=== PATIENT | male | born 2000 | race Two or more races ===

== ENCOUNTER 2019-12-30 10:06 | Emergency (ER) | payer OTHER ==
--- NOTE | 2019-12-30 10:19 | PDOC ---
History of Present Illness - General Chief Complaint: Asthma Stated Complaint: SOB Time Seen by Provider: 12/30/19 10:18 History Source: Patient Exam Limitations: No Limitations - History of Present Illness Initial Comments: 12/30/19 10:19 Amando Howell is a 19M with PMH asthma presenting with SOB and wheezing. Patient has history of severe childhood asthma with many hospitalizations and one intubation, as an adult has infrequent hospitalizations, on Symbicort QD and albuterol inhaler PRN, last asthma exacerbation 3 weeks ago. Allergies to pollen and cats. Patient reports he has had SOB and wheezing for the last day, was sitting on a bus back to [place] from [place] on a 29 hour trip and was wheezing the entire time. Does not have albuterol inhaler, tried taking Symbicort inhaler multiple times without significant relief. Denies any fever/chills/nausea/vomiting/chest pain/SOB. Past History - Past Medical History Allergies/Adverse Reactions: Allergies Allergy/AdvReac Type Severity Reaction Status Date / Time No Known Allergies Allergy Verified 12/30/19 10:39 Home Medications: Ambulatory Orders Albuterol 0.083% Nebulizer Latasha [Ventolin 0.083% Nebulizer Soln -] 1 neb NEB Q4H PRN #30 vial 12/30/19 Albuterol Sulfate Inhaler - [Ventolin Hfa Inhaler -] 1 - 2 inh PO Q4H #1 inhaler 12/30/19 Budesonide/Formeterol Fumarate [SYMBICORT 80/4.5mcg -] 1 inh PO DAILY #1 cannister 12/30/19 Nebulizer [Lc D Nebulizer Set] 1 each ONCE #1 each 12/30/19 predniSONE [Deltasone -] 40 mg PO DAILY 5 Days #10 tablet 12/30/19 Review of Systems - Review of Systems Able to Perform ROS?: Yes Constitutional: No: Chills, Fever HEENTM: No: Symptoms Reported Respiratory: Yes: Shortness of Breath, SOB at Rest, Wheezing. No: Cough, Productive cough Cardiac (ROS): No: Chest Pain, Edema, Irregular Heart Rate, Lightheadedness, Palpitations, Syncope, Chest Tightness ABD/GI: No: Blood Streaked Bowels, Constipated, Diarrhea, Nausea, Poor Appetite, Poor Fluid Intake, Vomiting : No: Symptoms Reported Musculoskeletal: No: Symptoms Reported Integumentary: No: Symptoms Reported Neurological: No: Headache, Numbness, Paresthesia Endocrine: No: Symptoms Reported Hematologic/Lymphatic: No: Symptoms Reported All Other Systems: Reviewed and Negative *Physical Exam - Physical Exam General Appearance: Yes: Nourished, Appropriately Dressed, Mild Distress HEENT: positive: EOMI, MALLORY, Normal Voice, Symmetrical, Pharynx Normal. negative: Scleral Icterus (R), Scleral Icterus (L), Pharyngeal Erythema, Tonsillar Exudate, Tonsillar Erythema, Hearing Grossly Normal Neck: positive: Normal Thyroid, Supple. negative: Tender, Trachea midline, Rigid, Lymphadenopathy (R), Lymphadenopathy (L) Respiratory/Chest: positive: Labored Respiration, Decreased Breath Sounds, Wheezing. negative: Chest Tender, Lungs Clear, Normal Breath Sounds, Respiratory Distress, Accessory Muscle Use, Crackles, Rhonchi, Stridor, Hyperresonant Cardiovascular: positive: Regular Rhythm, Regular Rate. negative: Murmur Gastrointestinal/Abdominal: positive: Normal Bowel Sounds, Flat, Soft. negative: Tender, Organomegaly, Pulsatile Mass, Guarding, Tenderness, Hernia, Mass Musculoskeletal: positive: Normal Inspection. negative: CVA Tenderness, Decreased Range of Motion, Vertebral Tenderness Extremity: positive: Normal Capillary Refill, Normal Inspection, Normal Range of Motion, Pelvis Stable. negative: Tender, Pedal Edema, Swelling, Calf Tenderness Integumentary: positive: Normal Color, Dry, Warm Neurologic: positive: Fully Oriented, Alert, Normal Mood/Affect, Normal Response Medical Decision Making - Medical Decision Making 12/30/19 11:22 Presents with SOB and wheezing for the last day in the setting of only having Symbicort inhaler and no albuterol, has history of childhood asthma and intubation as a child but not severe asthma as an adult, last ER visit for asthma 3 weeks ago. VS stable in ED but has inspiratory and expiratory wheezing on exam consistent with asthma exacerbation. Giving Duonebs and 60mg prednisone for asthma relief. Sending home with 5 days 40mg prednisone dose, refill of Symbicort and albuterol, and a nebulizer with some amps for further asthma management. 12/30/19 12:33 Patient re-evalauted and doing much better, stable for discharge home with meds as prescribed. Discharge - Discharge Information Problems reviewed: Yes Clinical Impression/Diagnosis: Asthma exacerbation Qualifiers: Asthma severity: moderate Asthma persistence: unspecified Qualified Code(s): J45.901 - Unspecified asthma with (acute) exacerbation Condition: Stable Disposition: HOME - Admission No - Additional Discharge Information Prescriptions: predniSONE [Deltasone -] 40 mg PO DAILY 5 Days #10 tablet Nebulizer [Lc D Nebulizer Set] 1 each MC ONCE #1 each Budesonide/Formeterol Fumarate [SYMBICORT 80/4.5mcg -] 1 inh PO DAILY #1 cannister Albuterol 0.083% Nebulizer Latasha [Ventolin 0.083% Nebulizer Soln -] 1 neb NEB Q4H PRN #30 vial PRN Reason: Asthma Albuterol Sulfate Inhaler - [Ventolin Hfa Inhaler -] 1 - 2 inh PO Q4H #1 inhaler - Follow up/Referral - Patient Discharge Instructions Patient Printed Discharge Instructions: DI for Asthma -- Adult Additional Instructions: Today you were evaluated for shortness of breath. We have given you breathing treatments and steroids for your asthma and you felt better. At home, please take your Symbicort and albuterol as prescribed. Taking the Symbicort each day is important, but if you have wheezing you need to take the albuterol inhaler because this will act faster. A prescription for more steroids to take at home has been given. Please see your primary doctor in the next 3 days for further care. If you experience worsening shortness of breath, chest tightness, become unable to speak or breathe well, or have any other new or concerning symptoms, please return to the emergency room. - Post Discharge Activity
[2019-12-30] MEDS ORDERED: methylPREDNISolone NA SUCC 125 MG/2 ML VIAL IVPUSH ONE (10:35)
[2019-12-30] MEDS ORDERED: predniSONE 20 MG TABLET (UD) PO ONE ×2 (10:41→10:47)
[2019-12-30] MEDS ORDERED: predniSONE 20 MG TABLET (UD) ONE (10:52)
[2019-12-30] MEDS ORDERED: ALBUTEROL SO4 2.5/IPRATROPIUM 0.5 INH SOL 3 ML VIAL.NEB. NEB ONE (10:52)
[2019-12-30 11:00] VITALS: BP 120/73; PULSE 65; TEMP 97.4; BMI 27.8
--- NOTE | 2019-12-30 11:11 | PDOC ---
Attending Attestation - Resident Resident Name: Kian Francis - ED Attending Attestation I have performed the following: I have examined & evaluated the patient, The case was reviewed & discussed with the resident, I agree w/resident's findings & plan - HPI HPI: 12/30/19 11:05 19y/o M with h/o mild persistent asthma on inhaled steroid daily presents now with 2d asthma exacerbation and usual sxs of wheezing, dry cough, chest congestion. Sxs prompted by accidentally inhaling his cologne, denies smoking/drugs. no f/c. has not been admitted for asthma in years, but has about 4 ED visits annually. - Physicial Exam PE: 12/30/19 11:06 afebrile, 98% on room air alert seated comfortably in stretcher, nad speaking full sentences s1s2, rrr good air entry b/l, no accessory muscle use. scant insp and exp wheeze b/l lower and mid lung panda, no focally decreased breath sounds. no edema/calf ttp - Medical Decision Making 12/30/19 11:11 19-year-old male with history of mild persistent asthma presents with asthma exacerbation over the last 1 to 2 days without evidence of superimposed infectious process, no acute hypoxic respiratory distress, but with some increased work of breathing. Nebulizers Steroids No indication for imaging Reassess and disposition accordingly
[2019-12-30] MEDS: ALBUTEROL SO4 2.5/IPRATROPIUM 0.5 INH SOL 3 ML VIAL.NEB. NEB SCH ×2 (11:20→11:30)
== END 2019-12-30 13:06 | disposition home or self-care (01) ==
LOC: JER 10:06
PROC: 3E0F7GC Introduction of Other Therapeutic Substance into Respiratory Tract, Via Natural or Artificial Opening (ICD-10-PCS; principal; 2019-12-30)
DX: J45.901 Unspecified asthma with (acute) exacerbation (principal)
CPT/HCPCS: 94640; 99283-25

== ENCOUNTER 2021-10-18 12:29 | Emergency (ER) | payer OTHER ==
[2021-10-18 12:53] VITALS: BP 141/91; PULSE 95; TEMP 97.1; BMI 19.2
== END 2021-10-18 14:04 | disposition home or self-care (01) ==
LOC: JER 12:29
DX: B34.9 Viral infection, unspecified (principal)
CPT/HCPCS: 99283-25; C9803; U0003; U0005